=== PATIENT | female | born 1985 | race Caucasian/White ===

== ENCOUNTER 2021-03-19 08:59 | Outpatient (CLI) | payer OTHER ==
[2021-03-19 22:44] LABS: SARS-CoV-2 PCR by NAA Not Detected (NotDetected)
== END 2021-03-19 09:00 | disposition home or self-care (01) ==
LOC: CSHLAB 08:59
PROVIDERS: ATTEND Advanced Practice Midwife
DX: Z20.822 Contact with and (suspected) exposure to COVID-19 (principal)
CPT/HCPCS: U0003; U0005

== ENCOUNTER 2021-03-23 13:28 | Inpatient (IN) | payer OTHER ==
[2021-03-23] MEDS ORDERED: HYDROcodone/Acetaminophen 5/325 mg Tablet PO PRN ×2 (19:02)
[2021-03-23] MEDS ORDERED: Lactated Ringer's 1,000 ML IV SCH (19:02)
[2021-03-23] MEDS ORDERED: Methylergonovine 0.2 MG/ML VIAL IM PRN (19:02)
[2021-03-23] MEDS ORDERED: Carboprost 250 MCG/ML AMP IM PRN (19:02)
[2021-03-23] MEDS ORDERED: Butorphanol Tartrate 1 MG/ML VIAL SLOW IVP PRN (19:02)
[2021-03-23] MEDS ORDERED: NS w/ Oxytocin 30 units 500 ML IV SCH ×2 (19:02)
[2021-03-23] MEDS ORDERED: Misoprostol 200 MCG TAB PR PRN (19:02)
[2021-03-23] MEDS ORDERED: Promethazine HCl 25 MG/ML VIAL IM PRN (19:02)
[2021-03-23] MEDS ORDERED: Acetaminophen 500 MG TAB PO PRN (19:02)
[2021-03-23] MEDS ORDERED: Ondansetron PF 4 MG/2 ML Vial IVP PRN (19:02)
[2021-03-23] MEDS ORDERED: Lidocaine 1% (PF) 30 ML VIAL SC PRN (19:02)
[2021-03-23] MEDS ORDERED: Diphenoxylate HCl/Atropine Tablet PO PRN (19:02)
[2021-03-23] MEDS ORDERED: hydrALAZINE 20 MG/ML VIAL SLOW IVP PRN (19:02)
[2021-03-23] MEDS ORDERED: Ibuprofen 800 MG TAB PO PRN (19:02)
[2021-03-23 19:10] VITALS: BMI 50.5
[2021-03-23 19:58] LABS: Hemoglobin 13.4 g/dL (12.0-15.5); Mean Corpuscular HGB CONC 34.6 g/dL (32.0-36.0); Mean Corpuscular Hemoglobin 32.5 pg (27.0-33.0); Mean Corpuscular Volume 93.9 fl (81.6-98.3); Mean Platelet Volume 11.2 fl (7.4-10.4); Platelet Count 182 10x3/uL (150-450); RBC Distribution Width 13.3 % (11.5-14.5); Red Blood Cell (RBC) Count 4.12 10x6/uL (3.90-5.03); White Blood Cell (WBC) Count 10.8 10x3/uL (3.5-10.5)
[2021-03-23] MEDS: Misoprostol 100 MCG TAB VAG SCH (20:13)
[2021-03-23 20:35] LABS: HBSAg Index 0.19 S/CO (0-0.99); Hep B Surf Ag Non-Reactive S/CO (NonReactive); Syphilis Antibody Nonreactive (Nonreactive); Syphilis Antibody Index 0.08 S/CO (<1.00 Non-Reactive)
[2021-03-24] MEDS: Misoprostol 100 MCG TAB VAG SCH ×2 (03:58)
[2021-03-24 08:06] LABS: HIV (1/2) Antibody/Antigen Non-Reactive (NonReactive)
[2021-03-24] MEDS ORDERED: Fentanyl 2 mcg/Bup 0.1% Cadd 100 ML ONE (10:19)
[2021-03-24] MEDS ORDERED: Naloxone HCl 0.4 mg/ml Vial IVP PRN ×2 (12:07)
[2021-03-24] MEDS ORDERED: Lactated Ringer's 500 ML IV PRN (12:07)
[2021-03-24] MEDS ORDERED: Acetaminophen 325 MG TAB PO PRN (12:07)
[2021-03-24] MEDS ORDERED: Ondansetron PF 4 MG/2 ML Vial IVP PRN ×2 (12:07→21:17)
[2021-03-24] MEDS ORDERED: ePHEDrine Sulfate 50 MG/10 ML VIAL SLOW IVP PRN (12:07)
[2021-03-24] MEDS ORDERED: Promethazine HCl 25 MG/ML VIAL IM PRN (12:07)
[2021-03-24] MEDS ORDERED: Hydrocerin (Eucerin) Cream 120 gm Jar TOP PRN (12:07)
[2021-03-24] MEDS ORDERED: diphenhydrAMINE 50 MG/ML VIAL IVP PRN (12:07)
[2021-03-24] MEDS ORDERED: Fentanyl 2 mcg/Bupivacaine 0.1% Cassette 100 ML EPIDURAL SCH (12:15)
[2021-03-24] MEDS ORDERED: Communication Order-Pharmacy FS SCH (12:15)
[2021-03-24] MEDS ORDERED: Boostrix 0.5 ML (Tdap) VIAL IM ONE (21:17)
[2021-03-24] MEDS ORDERED: hydrALAZINE 20 MG/ML VIAL SLOW IVP PRN (21:17)
[2021-03-24] MEDS ORDERED: Bisacodyl 10 MG SUPP PR PRN (21:17)
[2021-03-24] MEDS ORDERED: Methylergonovine 0.2 MG/ML VIAL IM PRN (21:17)
[2021-03-24] MEDS ORDERED: HYDROcodone/Acetaminophen 5/325 mg Tablet PO PRN ×2 (21:17)
[2021-03-24] MEDS ORDERED: Milk Of Magnesia 30 ML UDCUP PO PRN (21:17)
[2021-03-24] MEDS ORDERED: Misoprostol 200 MCG TAB VAG PRN (21:17)
[2021-03-24] MEDS ORDERED: Benzocaine-Menthol 82.5 ML CAN TOP PRN (21:17)
[2021-03-24] MEDS ORDERED: NS w/ Oxytocin 30 units 500 ML IV SCH (21:17)
[2021-03-24] MEDS ORDERED: Docusate Calcium (SURFAK) 240 MG CAP PO SCH (21:30)
[2021-03-24] MEDS: Docusate Calcium (SURFAK) 240 MG CAP PO SCH (21:39)
[2021-03-25] MEDS: Ibuprofen 800 MG TAB PO SCH ×4 (01:46→21:29)
[2021-03-25] MEDS: Misoprostol 100 MCG TAB VAG SCH ×2 (07:25→07:26)
[2021-03-25] MEDS: Ferrous Sulfate 325 MG TAB PO SCH ×2 (08:58→17:46)
[2021-03-25 09:40] LABS: Hemoglobin 11.3 g/dL (12.0-15.5); Mean Corpuscular HGB CONC 33.3 g/dL (32.0-36.0); Mean Corpuscular Hemoglobin 32.2 pg (27.0-33.0); Mean Corpuscular Volume 96.6 fl (81.6-98.3); Mean Platelet Volume 11.3 fl (7.4-10.4); Platelet Count 147 10x3/uL (150-450); RBC Distribution Width 13.6 % (11.5-14.5); Red Blood Cell (RBC) Count 3.51 10x6/uL (3.90-5.03); White Blood Cell (WBC) Count 11.2 10x3/uL (3.5-10.5)
[2021-03-25] MEDS: Docusate Calcium (SURFAK) 240 MG CAP PO SCH ×2 (09:40→21:30)
[2021-03-25 10:27] LABS: ALT (SGPT) 28 U/L (8-55); AST (SGOT) 34 U/L (5-34); Albumin 2.7 g/dL (3.5-5.0); Alkaline Phosphatase 374 U/L (40-110); Anion Gap 13 mmol/L (10-20); BUN (Urea Nitrogen) 6 mg/dL (7.0-18.7); Bilirubin, Total 0.9 mg/dL (0.2-1.2); Calc. Creatinine Clearance 234 mL/min (70-130); Calcium 8.7 mg/dL (7.8-10.44); Carbon Dioxide 19 mmol/L (22-29); Chloride 111 mmol/L (98-107); Globulin 2.8 g/dL (2.4-3.5); Glucose 106 mg/dL (70-105); Potassium 4.5 mmol/L (3.5-5.1); Protein, Total 5.5 g/dL (6.0-8.3); Sodium 138 mmol/L (136-145)
[2021-03-26] MEDS: Ibuprofen 800 MG TAB PO SCH (06:07)
[2021-03-26] MEDS: Docusate Calcium (SURFAK) 240 MG CAP PO SCH (08:52)
[2021-03-26] MEDS: Ferrous Sulfate 325 MG TAB PO SCH (08:52)
[2021-03-26 10:05] VITALS: BP 123/58; TEMP 98.3
== END 2021-03-26 11:25 | disposition home or self-care (01) | DRG 807 ==
LOC: CSHLD 18:45 → CSHPP 03-24 20:51
PROVIDERS: ADMIT Obstetrics & Gynecology; ATTEND Obstetrics & Gynecology
PROC: 10E0XZZ Delivery of Products of Conception, External Approach (ICD-10-PCS; principal; 2021-03-24)
PROC: 0UQMXZZ Repair Vulva, External Approach (ICD-10-PCS; 2021-03-24)
PROC: 3E033VJ Introduction of Other Hormone into Peripheral Vein, Percutaneous Approach (ICD-10-PCS; 2021-03-24)
PROC: 3E0P7VZ Introduction of Hormone into Female Reproductive, Via Natural or Artificial Opening (ICD-10-PCS; 2021-03-24)
DX: O24.425 Gestational diabetes mellitus in childbirth, controlled by oral hypoglycemic drugs (principal); Z37.0 Single live birth; Z3A.39 39 weeks gestation of pregnancy; O99.214 Obesity complicating childbirth; E66.01 Morbid (severe) obesity due to excess calories; O71.82 Other specified trauma to perineum and vulva; O43.193 Other malformation of placenta, third trimester; O89.4 Spinal and epidural anesthesia-induced headache during the puerperium; O69.4XX0 Labor and delivery complicated by vasa previa, not applicable or unspecified
CPT/HCPCS: 36415; 51702; 62272; 80053; 85027; 86780; 86850; 86900; 86901; 87340; 87389; 88307; J0595; J2405; J2590

== ENCOUNTER 2024-03-29 03:33 | Inpatient (IN) | payer OTHER, SELFPAY ==
[2024-03-29 04:57] VITALS: BMI 51.9
[2024-03-29 05:11] LABS: Bilirubin Neg (Negative); Blood, Urine 250 (Negative); Clarity Cloudy (Clear); Glucose, Urine (Dipstick) Normal (Negative); Ketone, Urine 5 mg/dL (Negative); Leukocyte 100 (Negative); Nitrite Negative (Negative); Protein, Urine (Dipstick) 30 mg/dl (Neg-Trace); Specific Gravity, Urine 1.025 (1.005-1.030); Urobilinogen Normal mg/dL (Less than 2)
[2024-03-29 05:12] LABS: #Basophils 0.02 10x3/uL (0.0-0.2); #Eosinophils 0.11 10x3/uL (0.0-0.5); #Monocytes 0.47 10x3/uL (0.0-1.1); #Neutrophils 7.24 10x3/uL (1.5-8.4); %Basophils 0.2 % (0.0-2.0); %Eosinophils 1.2 % (0.0-6.0); %Lymphocytes 17.3 % (18.0-47.0); %Monocytes 4.9 % (0.0-10.0); %Neutrophils 75.7 % (40.0-75.0); Hematocrit 36.3 % (34.9-44.5); Hemoglobin 12.2 g/dL (12.0-15.5); Mean Corpuscular HGB CONC 33.6 g/dL (32.0-36.0); Mean Corpuscular Volume 95.3 fL (81.6-98.3); Mean Platelet Volume 10.7 fL (7.4-10.4); Platelet Count 201 10x3/uL (150-450); RBC Distribution Width 14.1 % (11.5-14.5); Red Blood Cell (RBC) Count 3.81 10x6/uL (3.90-5.03); White Blood Cell (WBC) Count 9.6 10x3/uL (3.5-10.5)
[2024-03-29 05:27] LABS: RBC/HPF Greater than 50 HPF (0-3)
[2024-03-29 05:28] LABS: CAUTI Indications for Culture Pregnancy
[2024-03-29 05:29] LABS: Bacteria/HPF 3+ HPF (None Seen)
[2024-03-29 05:30] LABS: Urine Culture Reflex Yes Yes
[2024-03-29] MEDS: cefTRIAXone\\ROCEPHIN 1 GM in Sodium Chloride 0.9% 100 ML IVPB SCH (05:46)
[2024-03-29] MEDS ORDERED: Lidocaine 1% (PF) 30 ML VIAL SC PRN (06:17)
[2024-03-29] MEDS ORDERED: Ondansetron PF 4 MG/2 ML Vial IVP PRN ×5 (06:17→13:23)
[2024-03-29] MEDS ORDERED: Lorazepam 2 MG/ML VIAL SLOW IVP PRN (06:17)
[2024-03-29] MEDS ORDERED: Promethazine HCl 25 MG/ML VIAL IM PRN ×4 (06:17→13:23)
[2024-03-29] MEDS ORDERED: hydrALAZINE 20 MG/ML VIAL SLOW IVP PRN ×2 (06:17→13:23)
[2024-03-29] MEDS ORDERED: Calcium Gluc 4.6 MEQ/10 ML (100 MG/ML) SLOW IVP PRN (06:17)
[2024-03-29] MEDS ORDERED: Labetalol HCl 100 MG/20 ML VIAL SLOW IVP PRN ×3 (06:17)
[2024-03-29] MEDS ORDERED: Acetaminophen 500 MG TAB PO PRN (06:17)
[2024-03-29] MEDS ORDERED: fentaNYL 50 mcg/mL 1 mL Vial SLOW IVP PRN ×2 (06:17→11:15)
[2024-03-29] MEDS ORDERED: Lactated Ringer's 1,000 ML IV SCH (06:30)
[2024-03-29] MEDS ORDERED: Oxytocin 30 units/NS 500 ML 500 ML IV SCH (06:30)
[2024-03-29 07:14] LABS: ALT (SGPT) 14 U/L (8-55); AST (SGOT) 13 U/L (5-34); Albumin 2.3 g/dL (3.5-5.0); Alkaline Phosphatase 278 U/L (40-110); Anion Gap 16 mmol/L (10-20); BUN (Urea Nitrogen) 6 mg/dL (7.0-18.7); Bilirubin, Total 0.6 mg/dL (0.2-1.2); Calc. Creatinine Clearance 261 mL/min (70-130); Carbon Dioxide 16 mmol/L (22-29); Chloride 110 mmol/L (98-107); Estimated GFR 118; Globulin 3.4 g/dL (2.4-3.5); Glucose 98 mg/dL (70-105); Potassium 4.1 mmol/L (3.5-5.1); Protein, Total 5.7 g/dL (6.0-8.3); Sodium 138 mmol/L (136-145)
[2024-03-29] MEDS: Penicillin G Potassium 5 MILL.UNITS in Sodium Chloride 0.9% 100 ML IVPB SCH (07:15)
[2024-03-29 07:47] LABS: Syphilis Antibody Nonreactive (Nonreactive); Syphilis Antibody Index 0.12 S/CO (<1.00 Non-Reactive)
[2024-03-29 07:48] LABS: Hep B Surf Ag - L&D Non-Reactive S/CO (NonReactive)
[2024-03-29] MEDS ORDERED: Naloxone HCl 0.4 mg/ml Vial IVP PRN ×4 (09:27→11:15)
[2024-03-29] MEDS ORDERED: Moisturizing Cream (Eucerin) 113 GM JAR TOP PRN ×2 (09:27→11:15)
[2024-03-29] MEDS ORDERED: ePHEDrine Sulfate 50 MG/10 ML VIAL SLOW IVP PRN (09:27)
[2024-03-29] MEDS ORDERED: diphenhydrAMINE 50 MG/ML VIAL IVP PRN ×2 (09:27→11:15)
[2024-03-29] MEDS ORDERED: Acetaminophen 325 MG TAB PO PRN (09:27)
[2024-03-29] MEDS ORDERED: Lactated Ringer's 500 ML IV PRN (09:27)
[2024-03-29] MEDS ORDERED: Communication Order-Pharmacy FS SCH ×2 (09:30→11:15)
[2024-03-29] MEDS ORDERED: fentaNYL 2 mcg/Ropivacaine 0.2% Epidural 100 ML CADD EPIDURAL SCH (09:30)
[2024-03-29] MEDS ORDERED: Penicillin G 2.5 MILL.units 2.5 MILL.UNITS in Premix 1 BAG IVPB SCH (10:30)
[2024-03-29] MEDS ORDERED: Meperidine HCl/PF 25 MG (1 mL) VIAL SLOW IVP PRN (11:15)
[2024-03-29] MEDS ORDERED: HYDROmorphone 0.5 MG/0.5 ML SYRINGE SLOW IVP PRN (11:15)
[2024-03-29] MEDS ORDERED: Naloxone HCl 0.4 mg/ml Vial IV PRN (11:15)
[2024-03-29 11:52] LABS: Analyzer IN Cardio CS ER; RapidComm Collect By RN
[2024-03-29 11:54] LABS: Analyzer IN Cardio CS ER; RapidComm Collect By RN; pH (Cord, venous) 7.216 (7.250-7.350)
[2024-03-29 12:29] LABS: Hemoglobin 10.5 g/dL (12.0-15.5); Platelet Count 177 10x3/uL (150-450)
[2024-03-29] MEDS ORDERED: diphenhydrAMINE 25 MG CAP PO PRN (13:23)
[2024-03-29] MEDS ORDERED: Lanolin Ointment 7 GM TUBE TOP PRN (13:23)
[2024-03-29] MEDS ORDERED: Bisacodyl 10 MG SUPP PR PRN (13:23)
[2024-03-29] MEDS: Misoprostol 200 MCG TAB ONE (13:35)
[2024-03-29] MEDS: fentaNYL/Ropivacaine Epidural 100 ML ONE (13:35)
[2024-03-29] MEDS: Azithromycin 500 MG VIAL ONE (13:36)
[2024-03-29] MEDS: Chloroprocaine 3% PF 20 ML VIAL ONE ×2 (13:36→13:37)
[2024-03-29] MEDS: Carboprost 250 MCG/ML AMP ONE (13:36)
[2024-03-29] MEDS: CEFAZOLIN 2 GM VIAL ONE (13:36)
[2024-03-29] MEDS: Tranexamic Acid 1,000 MG/10 ML VIAL ONE (13:36)
[2024-03-29] MEDS: Ketorolac Tromethamine 30 MG (1 mL) VIAL ONE (13:37)
[2024-03-29] MEDS: Lidocaine 2% MPF 10 ML AMP (For Epidural Use) ONE (13:37)
[2024-03-29] MEDS: Erythromycin Base 0.5% Oint 1 GM TUBE ONE (13:37)
[2024-03-29] MEDS: Boostrix 0.5 ML (Tdap) VIAL (>/=7 yrs of age) IM ONE (13:38)
[2024-03-29] MEDS: Phytonadione Neonatal 1 MG/0.5 ML AMP ONE (13:38)
[2024-03-29] MEDS: Ketorolac Tromethamine 30 MG (1 mL) VIAL IVP PRN (16:35)
[2024-03-29] MEDS: Ferrous Sulfate 325 MG TAB PO SCH (19:49)
[2024-03-29] MEDS: Docusate 100 MG CAP PO SCH (22:37)
[2024-03-30] MEDS: Acetaminophen 325 MG TAB PO PRN (03:25)
[2024-03-30 05:44] LABS: Hemoglobin 9.1 g/dL (12.0-15.5); Mean Corpuscular HGB CONC 32.5 g/dL (32.0-36.0); Mean Corpuscular Hemoglobin 31.6 pg (27.0-33.0); Mean Corpuscular Volume 97.2 fL (81.6-98.3); Mean Platelet Volume 10.2 fL (7.4-10.4); Platelet Count 164 10x3/uL (150-450); RBC Distribution Width 14.4 % (11.5-14.5); Red Blood Cell (RBC) Count 2.88 10x6/uL (3.90-5.03)
[2024-03-30] MEDS: Prenatal Vitamin 1 TAB PO SCH (08:55)
[2024-03-30] MEDS: HYDROcodone/Acetaminophen 5/325 mg Tablet PO PRN (08:56)
[2024-03-30] MEDS: Ibuprofen 800 MG TAB PO SCH (17:00)
[2024-03-30] MEDS: Simethicone Chewable 80 MG TAB PO PRN (20:58)
[2024-03-31] MEDS: HYDROcodone/Acetaminophen 5/325 mg Tablet PO PRN (14:19)
[2024-04-01 07:32] VITALS: BP 135/61; TEMP 97.9
== END 2024-04-01 18:25 | disposition home or self-care (01) | DRG 786 ==
LOC: CSHLD/OP 03:33 → CSHLD 06:17 → CSHPED 13:52
PROVIDERS: ADMIT Student in an Organized Health Care Education/Training Program; ATTEND Student in an Organized Health Care Education/Training Program
PROC: 10D00Z1 Extraction of Products of Conception, Low, Open Approach (ICD-10-PCS; principal; 2024-03-29)
PROC: 4A033R1 Measurement of Arterial Saturation, Peripheral, Percutaneous Approach (ICD-10-PCS; 2024-03-29)
DX: O24.425 Gestational diabetes mellitus in childbirth, controlled by oral hypoglycemic drugs (principal); O45.93 Premature separation of placenta, unspecified, third trimester; O60.14X0 Preterm labor third trimester with preterm delivery third trimester, not applicable or unspecified; D62 Acute posthemorrhagic anemia; Z3A.35 35 weeks gestation of pregnancy; Z37.0 Single live birth; Z79.84 Long term (current) use of oral hypoglycemic drugs; O99.03 Anemia complicating the puerperium
CPT/HCPCS: 36415; 51702; 80053; 81001; 82570; 82805; 84156; 85025; 85027; 86780; 86850; 86900; 86901; 87086; 87340; 88307; 99285; J0696; J1885; J2401; J2540